=== PATIENT | female | born 1945 | race Caucasian/White ===

== ENCOUNTER 2022-09-01 10:04 | Emergency (ER) | payer MEDICARE, MEDICAID, SELFPAY ==
[2022-09-01 10:08] VITALS: BP 130/74; PULSE 78; O2SAT 97
--- NOTE | 2022-09-01 10:15 | ED_ITS ---
HPI - General Adult General Chief complaint: Ear Problems Stated complaint: L ear pain x 3 wks from SNF Time Seen by Provider: 09/01/22 10:14 Source: patient and EMS Mode of arrival: EMS Limitations: no limitations History of Present Illness HPI narrative: Patient is a 76 year old assigned female at with a history of HTN, paranoia, and CAD presenting to the emergency department today with 3 weeks of left ear pain. Patient states that she feels like something is in her left ear because she can't get it to pop. Patient denies any dizziness, lightheadedness, abdominal pain, nausea, vomiting, fever, chills, blurry vision, double vision, loss of vision, chest pain, difficulty breathing, shortness of breath, back pain, night sweats, pain with urination, increased urinary frequency, increased urinary urgency, blood in her urine or stool, syncope or a near syncopal episode, recent trauma or falls, bowel incontinence, bladder incontinence, bowel retention, bladder retention, or any other complaints at this time. Onset (ago): week(s) (3) Location: left (ear) Radiation: non-radiation Severity: mild Severity scale (1-10): 2 Quality: aching and dull Pain Consistency: constant Relieving factors: none Exacerbating factors: none Associated symptoms: denies other symptoms Treatments prior to arrival: none Related Data Allergies Allergy/AdvReac Type Severity Reaction Status Date / Time No Known Allergies Allergy Verified 09/01/22 10:12 Review of Systems Constitutional: Constitutional: Reports no additional constitutional complaints, Denies chills, Denies fever(s) and Denies night sweats Eyes: Eyes: Reports no additional eye complaints, Denies blurry vision, Denies change in vision, Denies diplopia, Denies eye discharge, Denies loss of vision and Denies eye pain ENT: Denies dizziness Comments: left ear pain Cardiovascular: Cardiovascular: Reports no additional cardiovascular complaints, Denies chest pain, Denies lightheadedness, Denies Loss of Consciousness and Denies dyspnea Respiratory: Respiratory: Reports no additional respiratory complaints and Denies dyspnea Gastrointestinal: Gastrointestinal: Reports no additional gastrointestinal complaints, Denies abdominal pain, Denies melena, Denies hematochezia, Denies change in bowel habits and Denies change in stool character Genitourinary: Genitourinary: Denies hematuria, Denies urinary frequency, Denies dysuria, Denies urinary incontinence, Denies urinary hesitancy and Denies urinary urgency Musculoskeletal: Musculoskeletal: Reports no additional musculoskeletal complaints, Denies numbness and Denies tingling Neurologic: Denies dizziness, Denies loss of vision, Denies numbness and Denies tingling Psychiatric: Psychiatric: Reports no additional psychiatric complaints Endocrine: Endocrine: Reports no additional endocrine complaints Hematologic/Lymphatic: Hematologic/Lymphatic: Reports no additional hematologic/lymphatic complaints Allergic/Immunologic: Allergic/Immunologic: Reports no additional allergic/immunologic complaints [facility] Past Medical History Attestation statement: The following information was validated with the patient. Source: old records reviewed, nursing notes reviewed and other (SNF staff) Medical History Heart murmur HLD (hyperlipidemia) HTN (hypertension) Paranoia Social History Social History Advance Directives: No Advance Directives Information Provided: No Physical Exam ED Vital Signs: Vital Signs - 24 hr 09/01/22 10:21 09/01/22 10:39 09/01/22 11:00 Temperature 98.4 F 98.4 F Pulse Rate 71 71 Respiratory Rate 16 18 Blood Pressure 127/81 127/68 Pulse Oximetry 95 96 96 Oxygen Delivery Method Room Air Room Air Room Air BMI result Body Mass Index 25.3 Const General: cooperative, no acute distress, alert and awake Nutritional Appearance: well nourished Orientation/consciousness: patient oriented x3 Limitations: no limitations [facility] Head: Yes normal to inspection and Yes atraumatic Ears: hearing grossly normal bilaterally, external ears normal and TM's normal bilaterally General nose exam: Normal external nose present, no nasal discharge noted and no epistaxis Face and sinus: Yes normal facial exam, No abrasion and No laceration Mouth: Normal oral and palatal mucosa present, no drooling and no muffled voice Eyes General: appearance normal, both eyes and all related structures Periorbital: periorbital findings normal Eyelids: Yes eyelids normal Conjunctivae: conjunctivae normal Pupils: Equal, round and reactive pupils present EOM: EOMs intact bilaterally Neck Neck: Yes normal visual inspection, Yes full ROM and Yes no lymphadenopathy Chest Chest palpation & inspection: normal inspection of the chest Resp Effort & Inspection: normal respiratory effort and able to speak in complete sentences Auscultation: clear to auscultation bilaterally Cardio Rate: regular rate Rhythm: regular rhythm GI Inspection: Yes normal to inspection Neuro General: patient oriented x3 and moves all extremities Cranial nerves: Yes Equal, round and reactive pupils present Cognition (Neuro): normal cognition Motor exam (neuro): 5/5 motor strength present throughout Sensory Exam: Normal double simultaneous stimulation for sensation Coordination: [id number] test normal Extrem General: Yes normal to inspection, Yes full ROM and Yes capillary refill normal Psych Appearance: grossly normal Mental Status: mental status grossly normal Affect: normal affect Attitude: cooperative Thought process: Normal thought process present Thought content: Normal thought content present Insight: Good insight present (Psych) Medical Decision Making Medical Decision Making MDM Narrative: Patient is a 76 year old assigned female at with a history of CAD, HTN, and paranoia presenting to the emergency department today with left ear pain. Patient's physical exam was unremarkable. I explained my physical exam findings to the patient. I answered all questions asked by the patient. I stressed the importance of the patient taking her medication as prescribed. I stressed the importance of the patient following up with her primary care provider and an ENT. I stressed the importance of the patient returning to the emergency department immediately if her symptoms were to worsen or if she were to develop any dizziness, shortness of breath, difficulty breathing, chest pain, blurry vision, loss of vision, nausea, vomiting, abdominal pain, fever, chills, back pain, or any other complaints. Patient verbalized agreement and understanding with this treatment plan and discharge. Differential Diagnosis Differential Diagnoses: The differential diagnosis associated with the presentation includes left ear pain otitis media otitis externa [facility] Independent Historian Clinical information obtained from an independent historian. History obtained from or confirmed by: EMS (EMS provided additional history and confirmed the history provided by the patient. ) External Record Review External record reviewed: Other (SNF records.) Discharge Plan Discharge Clinical Impression: Eustachian tube dysfunction Patient Disposition: Home, Self-Care Instructions: [place] (ED) Additional Instructions: Follow up with your primary care provider and an ENT. Return to the emergency department immediately if your symptoms worsen or if you develop any dizziness, shortness of breath, difficulty breathing, chest pain, blurry vision, loss of vision, nausea, vomiting, abdominal pain, fever, chills, back pain, or any other complaints. Referrals: [facility] [Provider Group] (Call to establish and follow up with an ENT specialist. ) [facility] [place] Family Medicine [Provider Group] (Call to establish and follow up with a primary care provider. If you already have a primary care provider, please follow up with them.) [facility] [place] Primary Care, Mariah [Provider Group] (Call to establish and follow up with a primary care provider. If you already have a primary care provider, please follow up with them.) [facility] [place] [facility] [Provider Group] (Call to establish and follow up with a primary care provider. If you already have a primary care provider, please follow up with them.) Interventions: ED Discharge Assessment Last Done: 09/01/22 10:45 Print Language: Irish
[2022-09-01 10:21] VITALS: BP 127/81; PULSE 71; RESP 16; TEMP 36.9; O2SAT 95; BMI 25.3
[2022-09-01 10:39] VITALS: BP 127/68; PULSE 71; RESP 18; TEMP 36.9; O2SAT 96
--- NOTE | 2022-09-01 10:40 | PC.NURSE ---
at 1039 error charting- sat 96% on RA not 6%. NAD. breathing well.
[2022-09-01 11:00] VITALS: O2SAT 96
--- NOTE | 2022-09-01 11:12 | PC.NURSE ---
assisted to WR with pass for [place].
== END 2022-09-01 11:12 | disposition home or self-care (01) ==
PROVIDERS: Emergency Provider Emergency Medicine
DX: H69.92 Unspecified Eustachian tube disorder, left ear (principal); H92.02 Otalgia, left ear; I10 Essential (primary) hypertension
CPT/HCPCS: 99283; 99284

== ENCOUNTER 2023-05-26 10:20 | Emergency (ER) | payer MEDICARE, MEDICAID, SELFPAY ==
[2023-05-26 10:27] VITALS: BP 132/68; PULSE 96; O2SAT 99
[2023-05-26 10:41] VITALS: BP 94/63; PULSE 84; RESP 16; TEMP 36.8; O2SAT 97; BMI 31.0
[2023-05-26 10:42] LABS: Glucose, Whole Blood 150 mg/dL (60-115)
[2023-05-26 10:42] LABS: Glucose, Whole Blood 147 mg/dL (60-115)
--- NOTE | 2023-05-26 10:45 | PC.NURSE ---
patient reports taking herself off of her medications. states she does not know why she is on the medications as she is healthy. EMS obtained poc >600. upon arrival poc found 147 and a repeat of 150. alert and oriented
[2023-05-26 11:07] VITALS: BP 107/67; PULSE 85; RESP 20; TEMP 36.8; O2SAT 96
[2023-05-26 12:02] LABS: MANUAL DIFF FLAG NO
[2023-05-26 12:04] LABS: Basophils Percent Auto 0.2 % (0-2); Eosinophils Absolute Auto 0.1 X10*3/uL (0.0-0.4); Eosinophils Percent Auto 0.6 % (0-4); Hematocrit 42.9 % (37.0-47.0); Hemoglobin 14.3 g/dl (12.0-16.0); Imm Gran Abs Auto 0.02 X10*3/uL (0.00-0.03); Imm Gran Pct Auto 0.2 % (0.0-0.4); Lymphocytes Absolute Auto 1.3 X10*3/uL (1.2-4.9); Mean Corpuscular HGB Conc 33.3 g/dl (31.0-35.0); Mean Corpuscular Hemoglobin 29.1 pg (27.0-33.0); Mean Corpuscular Volume 87.2 fL (80.0-98.0); Mean Platelet Volume 9.1 fL (9.4-12.3); Monocytes Absolute Auto 0.8 X10*3/uL (0.1-1.2); Monocytes Percent Auto 8.8 % (2-11); Neutrophils Absolute Auto 6.8 x10*3/uL (2.0-8.3); Neutrophils Percent Auto 76.2 % (45-73); Platelet Count 348 X10*3/uL (160-400); Red Blood Count 4.92 X10*6/uL (4.20-5.50); Red Cell Distribution Width 13.4 % (11.0-16.0)
[2023-05-26 12:15] LABS: Anion Gap 10 (12-20); Blood Urea Nitrogen 19 mg/dL (9-16); Calcium 10.6 mg/dL (8.4-10.2); Carbon Dioxide 26 mmol/L (22-29); Chloride 107 mmol/L (96-108); Creatinine Clr Calc Pharmacy 65.1; Estimated Glomerular Filt Rate > 60; Glucose Random 90 mg/dL (60-115); Potassium 3.7 mmol/L (3.3-5.1); Sodium 139 mmol/L (135-145)
--- NOTE | 2023-05-26 13:48 | PHA.MEDREC ---
Pharmacy Consult ? Medication Reconciliation Pharmacy has completed the medication reconciliation. Patient with list from [facility]. Yecenia Figueroa, LawrenceD
[2023-05-26 14:33] VITALS: BP 154/94; PULSE 88; O2SAT 96
--- NOTE | 2023-05-26 14:47 | ED_ITS ---
HPI - General Adult General Chief complaint: General Medical Stated complaint: NON MED COMPLIANT,HIGH BS 622 FROM SNF PER EMS Time Seen by Provider: 05/26/23 10:29 Source: patient and EMS Mode of arrival: EMS Limitations: no limitations History of Present Illness HPI narrative: Silva sent in from skilled care facility because she is refusing to take her medication. Patient states that she is aware. Denies suicidal or homicidal ideation Onset (ago): month(s) Related Data Home Medications ?Medication ?Instructions ?Recorded ?Confirmed acetaminophen 325 mg tablet 650 mg PO Q4H PRN pain or fever 05/26/23 05/26/23 clopidogrel 75 mg tablet 75 mg PO DAILY 05/26/23 05/26/23 lisinopril 5 mg tablet 5 mg PO DAILY 05/26/23 05/26/23 magnesium hydroxide 400 mg/5 mL 30 ml PO DAILY PRN Constipation 05/26/23 05/26/23 oral suspension (Milk of Magnesia) metoprolol succinate 25 mg 25 mg PO DAILY 05/26/23 05/26/23 tablet,extended release 24 hr olanzapine 7.5 mg tablet 7.5 mg PO DAILY 05/26/23 05/26/23 rivaroxaban 10 mg tablet (Xarelto) 10 mg PO DAILY 05/26/23 05/26/23 sennosides 8.6 mg tablet (senna) 8.6 mg PO BEDTIME 05/26/23 05/26/23 Allergies Allergy/AdvReac Type Severity Reaction Status Date / Time No Known Allergies Allergy Verified 05/26/23 10:42 Review of Systems 2 Review of Systems: Yes all other systems are reviewed and are negative Neurologic: Denies Sensory deficit (Neuro) [facility] Past Medical History Medical History Paranoia HLD (hyperlipidemia) HTN (hypertension) Heart murmur Social History Social History Advance Directives: No Advance Directives Information Provided: No Physical Exam ED Vital Signs: Vital Signs - 24 hr 05/26/23 10:41 05/26/23 11:07 05/26/23 14:33 Temperature 98.3 F 98.2 F Pulse Rate 84 85 88 Respiratory Rate 16 20 Blood Pressure 94/63 107/67 154/94 H Pulse Oximetry 97 96 96 Oxygen Delivery Method Room Air Room Air Room Air BMI result Body Mass Index 31.0 Const General: healthy appearing Nutritional Appearance: average body habitus Orientation/consciousness: oriented to person and patient oriented x3 Limitations: no limitations H[facility] Head: Yes normal to inspection Ears: external ears normal General nose exam: Normal external nose present Mouth: Normal oral and palatal mucosa present and oropharynx normal Throat: Yes posterior oropharynx normal Eyes General: appearance normal, both eyes and all related structures Neck Neck: Yes normal visual inspection Chest Chest palpation & inspection: normal inspection of the chest Resp Auscultation: clear to auscultation bilaterally Cardio Jugular venous distension: no JVD Rate: regular rate Rhythm: regular rhythm Heart sounds: S1 normal heart sound present and S2 normal heart sound present GI Inspection: Yes normal to inspection Palpation (GI): Soft to palpation, nontender and No hepatosplenomegaly present Auscultation: normal bowel sounds General: Yes no CVA tenderness Back/Spine/Pelvis Back: no CVA tenderness Skin General skin exam: no rashes or lesions noted Neuro General: oriented to person and patient oriented x3 Cranial nerves: Yes CN's II-XII intact bilaterally Motor exam (neuro): 5/5 motor strength present throughout Sensory Exam: No Sensory deficit (Neuro) Extrem General: Yes normal to inspection Psych Appearance: grossly normal Course Reevaluation(s) Reevaluation #1: Patient is clear that she is trying to maintain herself and does not want to take her pills any longer. She is not suicidal or homicidal and is quite clear about her thoughts will dc home Time: 16:21 Medical Decision Making Differential Diagnosis Differential Diagnoses: The differential diagnosis associated with the presentation includes (Medication noncompliance, electrolyte abnormality were considered) Lab Data 05/26/23 11:57 05/26/23 11:57 Labs: Lab Results 05/26/23 05/26/23 05/26/23 Range/Units 10:37 10:39 11:57 WBC 9.0 (4.8-10.8) X10*3/uL RBC 4.92 (4.20-5.50) X10*6/uL Hgb 14.3 (12.0-16.0) g/dl Hct 42.9 (37.0-47.0) % MCV 87.2 (80.0-98.0) fL MCH 29.1 (27.0-33.0) pg MCHC 33.3 (31.0-35.0) g/dl RDW 13.4 (11.0-16.0) % Plt Count 348 (160-400) X10*3/uL MPV 9.1 L (9.4-12.3) fL Immature Gran % (Auto) 0.2 (0.0-0.4) % Neut % (Auto) 76.2 H (45-73) % Lymph % (Auto) 14.0 L (20-40) % Nicholas % (Auto) 8.8 (2-11) % Eos % (Auto) 0.6 (0-4) % Baso % (Auto) 0.2 (0-2) % Lymph # (Auto) 1.3 (1.2-4.9) X10*3/uL Nicholas # (Auto) 0.8 (0.1-1.2) X10*3/uL Eos # (Auto) 0.1 (0.0-0.4) X10*3/uL Baso # (Auto) 0.0 (0.0-0.2) X10*3/uL Abs Immat Gran (auto) 0.02 (0.00-0.03) X10*3/uL Absolute Neuts (auto) 6.8 (2.0-8.3) x10*3/uL Absolute Nucleated RBC 0.000 (0.0-0.012) X10*3/uL Nucleated RBC % (auto) 0.0 (0.0-0.2) /100WBC Sodium 139 (135-145) mmol/L Potassium 3.7 (3.3-5.1) mmol/L Chloride 107 (96-108) mmol/L Carbon Dioxide 26 (22-29) mmol/L Anion Gap 10 L (12-20) BUN 19 H (9-16) mg/dL Creatinine 0.71 (0.5-1.4) mg/dL Estim Creat Clear Calc 65.1 Estimated GFR > 60 POC Glucose 147 H 150 H (60-115) mg/dL Random Glucose 90 (60-115) mg/dL Calcium 10.6 H (8.4-10.2) mg/dL Independent Historian Clinical information obtained from an independent historian. History obtained from or confirmed by: EMS Chronic Conditions Patient?s care impacted by: Diabetes and Hypertension Discharge Plan Discharge Clinical Impression: Noncompliance with medication regimen Instructions: Medication Safety for Older Adults (ED) Additional Instructions: given your heart condition and the stent in your leg you should reconsider taking your medications Prescriptions: No Action sennosides [senna] 8.6 mg tablet 8.6 mg PO BEDTIME acetaminophen 325 mg Tablet 650 mg PO Q4H PRN (Reason: pain or fever) clopidogrel 75 mg tablet 75 mg PO DAILY olanzapine 7.5 mg tablet 7.5 mg PO DAILY magnesium hydroxide [Milk of Magnesia] 400 mg/5 mL Suspension 30 ml PO DAILY PRN (Reason: Constipation) lisinopril 5 mg tablet 5 mg PO DAILY metoprolol succinate 25 mg tablet extended release 24 hr 25 mg PO DAILY Xarelto 10 mg tablet 10 mg PO DAILY Referrals: Physician,None [Primary Care Provider] - 1 week Print Language: Macedonian
--- NOTE | 2023-05-26 16:23 | PC.NURSE ---
patient has been resting quietly in stretcher, reading book. patient ambulates to and from bathroom on her own. respirations equal and unlabored, skin dry and intact
--- NOTE | 2023-05-26 16:36 | MHC.CM.PN ---
emr reviewed, cmn
--- NOTE | 2023-05-26 16:36 | MHC.CM.PN ---
EMR REVIEWED, PT RESIDENT AT [facility] AND HAS BEEN OFF HER MEDS X6MOS, PER ED PROVIDER PT READY FOR DC, CM RECEIVED MESSAGE THAT DARIAN LOWRY IS PT'S GUARDIAN AND PT HAS UNDERLYING DEMENTIA, PARANOIA AND MAINLY PERSONALITY D/O. DARIAN IS AGREEABLE TO PT'S RETURN TO [facility] SHE WILL NOT BE ADMITTED OR NEEDS TO BE UNDER OBSERVATION, CM MET W/PT WHO REPORTS SHE DOES NOT WANT TO GO BACK HOWEVER IS TO RETURN IF SHE HAS [facility] FOR TRANSPORT AT 1830PM THAT IS THERE FIRST AVAILABLE.
--- NOTE | 2023-05-26 18:25 | PC.NURSE ---
patient awaiting ambulance ride back to snf, given dinner tray. patient is calm and cooperative.
[2023-05-26 18:33] VITALS: BP 133/89; PULSE 81; RESP 14; TEMP 36.7; O2SAT 94
== END 2023-05-26 19:01 | disposition skilled nursing facility (03) ==
LOC: HO.ED 11:12
PROVIDERS: Emergency Provider Emergency Medicine
DX: R73.9 Hyperglycemia, unspecified (principal); Z91.148 Patient's other noncompliance with medication regimen for other reason; Z79.899 Other long term (current) drug therapy
CPT/HCPCS: 36415; 80048; 82947; 85025; 99283; 99284

== ENCOUNTER 2024-03-02 18:39 | Emergency (ER) | payer MEDICARE, MEDICAID, SELFPAY ==
--- NOTE | ~2024-03-02 | XR_ITS ---
CLINICAL HISTORY: fall 4 view right knee Comparison: None Findings: Bones intact. No dislocations. No significant arthritic change or erosions. No joint effusion. No radiopaque foreign body. IMPRESSION: 1. No acute findings. This document has been electronically signed by: Timothy Duran MD on 03/02/2024 19:47:53
[2024-03-02 18:50] VITALS: BP 148/96; PULSE 110; O2SAT 96
--- NOTE | 2024-03-02 18:52 | ED_ITS ---
HPI - Fall General Chief Complaint: Fall Stated Complaint: Fell on sidewalk [facility] - [facility], Skinned kne Time Seen by Provider: 03/02/24 18:52 Source: patient Mode of arrival: EMS Limitations: no limitations History of Present Illness ED Provider: HPI Narrative: Patient came after mechanical fall on uneven landed on her right knee no head injury no loss of consciousness no other injuries patient not on any blood thinner except plan patient is able to stand up and ambulate Related Data Home Medications ?Medication ?Instructions ?Recorded ?Confirmed acetaminophen 325 mg tablet 650 mg PO Q4H PRN pain or fever 05/26/23 05/26/23 clopidogrel 75 mg tablet 75 mg PO DAILY 05/26/23 05/26/23 lisinopril 5 mg tablet 5 mg PO DAILY 05/26/23 05/26/23 magnesium hydroxide 400 mg/5 mL 30 ml PO DAILY PRN Constipation 05/26/23 05/26/23 oral suspension (Milk of Magnesia) metoprolol succinate 25 mg 25 mg PO DAILY 05/26/23 05/26/23 tablet,extended release 24 hr olanzapine 7.5 mg tablet 7.5 mg PO DAILY 05/26/23 05/26/23 rivaroxaban 10 mg tablet (Xarelto) 10 mg PO DAILY 05/26/23 05/26/23 sennosides 8.6 mg tablet (senna) 8.6 mg PO BEDTIME 05/26/23 05/26/23 Allergies Allergy/AdvReac Type Severity Reaction Status Date / Time No Known Allergies Allergy Verified 03/02/24 19:18 Review of Systems Review of Systems: Yes all other systems are reviewed and are negative [facility] Past Medical History Medical History Paranoia HLD (hyperlipidemia) HTN (hypertension) Heart murmur Social History Social History Smoked in Last 30 Days: No Use of substances other than those prescribed or required for medical reasons: No Advance Directives: No Advance Directives Information Provided: Yes Physical Exam Vital Signs: Vital Signs: Last Vital Signs Temp 98.0 F 03/02/24 19:10 Pulse 89 03/02/24 19:10 Resp 16 03/02/24 19:10 BP 149/96 H 03/02/24 19:10 Pulse Ox 96 03/02/24 19:10 O2 Del Method Room Air 03/02/24 19:10 BMI result Body Mass Index 28.0 Appearance: Alert. Oriented X3. No acute distress. Eyes: PERRLA, No Nystagmus ENT: Pharynx normal. Oral Mucosa moist Neck: Normal inspection. Neck supple. CVS: Normal heart rate and rhythm. Pulses normal. Respiratory: No respiratory distress. Equal air entry bilateral, Abdomen: Soft and nontender. Bowel sounds are present, Skin: Skin warm and dry. Normal skin color. Normal skin turgor. Extremities: No lower extremity edema. No calf tenderness right knee superficial abrasion of the kneecap no effusion good range of movement Neuro: Oriented X 3. No motor deficit. Medical Decision Making Independent Interpretation I performed an independent interpretation of an: Plain X-Ray Interpretation: nad Discharge Plan Discharge Clinical Impression: Contusion of knee, right Patient Disposition: Home, Self-Care Instructions: Knee Pain (ED) Additional Instructions: Local care as advised Your x-rays negative for fracture Prescriptions: No Action sennosides [senna] 8.6 mg tablet 8.6 mg PO BEDTIME acetaminophen 325 mg Tablet 650 mg PO Q4H PRN (Reason: pain or fever) clopidogrel 75 mg tablet 75 mg PO DAILY olanzapine 7.5 mg tablet 7.5 mg PO DAILY magnesium hydroxide [Milk of Magnesia] 400 mg/5 mL Suspension 30 ml PO DAILY PRN (Reason: Constipation) lisinopril 5 mg tablet 5 mg PO DAILY metoprolol succinate 25 mg tablet extended release 24 hr 25 mg PO DAILY Xarelto 10 mg tablet 10 mg PO DAILY Print Language: [place]
[2024-03-02 19:10] VITALS: BP 149/96; PULSE 89; RESP 16; TEMP 36.7; O2SAT 96; BMI 28.0
--- NOTE | 2024-03-02 20:30 | PC.NURSE ---
pt refusing food, provided snacks and temitope saqib at this time.
--- NOTE | 2024-03-02 21:29 | PC.NURSE ---
pt awaiting EMS transport
[2024-03-02 22:28] VITALS: BP 123/79; PULSE 72; RESP 19; TEMP 36.8; O2SAT 97
[2024-03-02 22:31] VITALS: BP 123/79; PULSE 72; RESP 19; TEMP 36.8; O2SAT 97
== END 2024-03-02 22:32 | disposition home or self-care (01) ==
PROVIDERS: Emergency Provider Internal Medicine; PCP Internal Medicine Cardiovascular Disease
DX: S80.01XA Contusion of right knee, initial encounter (principal); V78.4XXA Person boarding or alighting from bus injured in noncollision transport accident, initial encounter; I10 Essential (primary) hypertension; E78.5 Hyperlipidemia, unspecified; Z79.899 Other long term (current) drug therapy; Y93.89 Activity, other specified; Y92.128 Other place in nursing home as the place of occurrence of the external cause; Y99.9 Unspecified external cause status
CPT/HCPCS: 73564; 99283; 99284

== ENCOUNTER → 2024-03-02 18:59 | Outpatient (BNV) | payer MEDICARE, MEDICAID, SELFPAY | PROVIDERS: Emergency Provider Internal Medicine; PCP Internal Medicine Cardiovascular Disease; Visit Provider Radiology Diagnostic Radiology | DX: M25.561 Pain in right knee (principal); W19.XXXA Unspecified fall, initial encounter | CPT/HCPCS: 73564 ==